=== PATIENT | female | born 1970 | race Caucasian/White ===

== ENCOUNTER 2019-05-16 05:52 | Day surgery (SDC) | payer OTHER ==
[2019-05-05 12:02] VITALS: BMI 36.8
[~2019-05-16 05:52] MED LIST: BUPIVICAINE 0.25%/MORPH PF/KETOROLAC - 51ML DISP.SYRINGE IA ONE; GELATIN, ABSORBABLE 100 EACH SPONGE TP ONE; THROMBIN (BOVINE) 5,000 UNIT VIAL TP ONE
[2019-05-16] MEDS ORDERED: BUPIVACAINE HCL/PF 0.5% (5 MG/ML) 30 ML VIAL IJ ONE (06:43)
[2019-05-16] MEDS ORDERED: MIDAZOLAM HCL 2 MG/2 ML SINGLE DOSE VIAL ONE (06:43)
[2019-05-16] MEDS ORDERED: CEFAZOLIN 2 GM in DEXTROSE 5%-WATER - 50 ML IVPB ONE (06:44)
[2019-05-16] MEDS ORDERED: BUPIVICAINE 0.25%/MORPH PF/KETOROLAC - 51ML DISP.SYRINGE IA ONE ×3 (06:44→09:59)
[2019-05-16] MEDS ORDERED: TRANEXAMIC ACID 1000 MG/10 ML VIAL IVPUSH ONE (06:44)
[2019-05-16] MEDS: CELECOXIB 200 MG CAPSULE PO ONE (07:10)
[2019-05-16] MEDS ORDERED: THROMBIN (RECOMBINANT) 5,000 UNIT VIAL TP ONE (07:15)
[2019-05-16] MEDS ORDERED: ceFAZolin SODIUM 1 GM VIAL ONE ×2 (07:15→08:58)
[2019-05-16] MEDS ORDERED: VANCOMYCIN 1,000 MG VIAL (RESTRICTED TO ID ONLY) ONE (07:16)
[2019-05-16] MEDS ORDERED: ONDANSETRON 4 MG/2 ML VIAL IVPUSH PRN ×2 (08:02→10:44)
[2019-05-16] MEDS ORDERED: MAG HYDROX/AL HYDROX/SIMETH 30 ML UNIT-DOSE CUP PO PRN (08:02)
--- NOTE | 2019-05-16 08:02 | HP ---
[facility] - Chief Complaint Chief Complaint: right knee pain - Past Medical History Allergies/Adverse Reactions: Allergies Allergy/AdvReac Type Severity Reaction Status Date / Time No Known Allergies Allergy Verified 05/16/19 06:52 ...LMP Comment: 02/09/2019 - Current Medications Current Medications: Home Medications Medication Instructions Recorded Ferrous Sulfate [Iron] 325 mg PO DAILY 05/05/19 Gluc Davis/Chondro Davis A/Vit C/Mn 1 each PO DAILY 05/05/19 [Glucosamine-Chondroitin Caps] Satellite Physical Exam - Physical Examination Vital Signs: Vital Signs Period Temp Pulse Resp BP Sys/Jameson Pulse Ox Last 24 Hr 98.5 F 83 18 140/86 97-97 General Appearance: Well Nourished, Well Developed, Alert & Oriented x3 ENT: Clear Lung: Normal air movement Extremities: Other (right knee- + swelling, + ttp medially, decr rom, nvi, xrays show grade 4 medial djd) Neurological: Intact, Alert, Oriented Satellite Impression/Plan - Impression/Plan Impression: right knee medial djd Operative Procedure: right medial cam ukr Date to be Performed: 05/16/19
[2019-05-16] MEDS ORDERED: LACTATED RINGERS SOLUTION 1,000 ML IV SCH (08:15)
[2019-05-16] MEDS ORDERED: BUPIVACAINE HCL/PF 0.5% (5MG/ML) 10 ML VIAL ONE (08:43)
[2019-05-16] MEDS ORDERED: DEXAMETHASONE SOD PHOSPHATE 4 MG/1 ML VIAL ONE (08:58)
[2019-05-16] MEDS ORDERED: ONDANSETRON 4 MG/2 ML VIAL ONE (08:58)
[2019-05-16] MEDS ORDERED: TRANEXAMIC ACID 1000 MG/10 ML VIAL ONE (08:58)
[2019-05-16] MEDS ORDERED: ePHEDrine SULFATE 50 MG/1 ML AMPULE ONE (09:40)
[2019-05-16] MEDS ORDERED: GELATIN, ABSORBABLE 100 EACH SPONGE TP ONE (09:50)
[2019-05-16] MEDS ORDERED: THROMBIN (BOVINE) 5,000 UNIT VIAL TP ONE (09:50)
[2019-05-16] MEDS ORDERED: METOPROLOL TARTRATE 5 MG/5 ML VIAL ONE (10:08)
--- NOTE | 2019-05-16 10:22 | OP ---
Operative Note - Note: Operative Date: 05/16/19 (anand) Pre-Operative Diagnosis: right knee medial djd Operation: right medial cam ukr Post-Operative Diagnosis: Same as Pre-op Surgeon: Fabio Jaimes Cement Gun Operator: Lucas Earl Anesthesiologist/AIRDROP SYSTEMS TECHNICIAN: Fede Cho Anesthesia: Spinal, Local Specimens Removed: bone fragments Estimated Blood Loss (mls): 50
[2019-05-16] MEDS ORDERED: PROMETHAZINE HCL 25 MG/1 ML VIAL IVPUSH PRN (10:44)
[2019-05-16] MEDS ORDERED: oxyCODONE HCL 5 MG TABLET PO PRN ×2 (10:44)
[2019-05-16] MEDS ORDERED: traMADol HCL 50 MG TABLET PO PRN (10:44)
--- NOTE | 2019-05-16 11:06 | SPEC ---
DATE OF OPERATION: 05/16/2019 PREOPERATIVE DIAGNOSIS: Degenerative joint disease, right knee. POSTOPERATIVE DIAGNOSIS: Degenerative joint disease, right knee. PROCEDURE: Right medial unicompartmental knee replacement with robotic-assisted navigation (MAKOplasty) and patelloplasty. SURGICAL ATTENDING: Fabio Jaimes MD ANESTHESIA: Regional and spinal. CLOSURE: Medial unicompartmental URSULA components with a 4 femur, 3 tibia, and an 8 polyethylene; No. 1 Vicryl, fascia; 0 and 2-0, subcutaneous; 3-0 Monocryl subcuticular with skin glue; 4-0 undyed Vicryl for pin sites. ESTIMATED BLOOD LOSS: Negligible. TOURNIQUET TIME: Approximately 24 minutes. COMPLICATIONS: None. CONDITION: To recovery in stable condition. DESCRIPTION OF OPERATIVE PROCEDURE: Patient was taken to the operating room on May 16, 2019. Spinal and regional anesthesia was administered by the anesthesiologist. IV Kefzol and TXA were administered prophylactically prior to the case. A well-padded pneumatic tourniquet was placed on the right proximal thigh. The right lower extremity was prepped and draped in the usual sterile fashion. A 6- to 8-cm longitudinal incision over the medial side of the patella from mid patella to the tibial tubercle was incised and was deepened using Bovie cautery. An arthrotomy was then made just medial to the patellar tendon and the patella. Subperiosteal dissection was done on the anteromedial proximal tibia all the way back to the MCL. Partial fat pad excision was performed, exposing the medial compartment. Checkpoint was malleable at both the femur and the tibia. Using 2 stab incisions in the femur 1 handbreadth above the patella on the femur and 2 stab incisions 1 handbreadth below the tibial tubercle on the tibia, 2 threaded pins were drilled in parallel fashion from anterior to posterior, going through the proximal cortex and engaging the 2nd but not through the 2nd cortex. To these threaded pins were fastened navigation rays, 1 on the femur and 1 on the tibia. The knee was then registered with the navigation device with the center of the rotation of the hip, medial and lateral malleoli, and multiple points both on the femur and on the tibia. Excellent registration of less than 0.5 mm was obtained on both to ensure adequate registration. The navigation device ensured us to "pop the bubbles" both on the femur and the tibia and that was performed and passed registration. The knee was then thoroughly inspected to remove all osteophytes both on the femur and the tibia. Also, osteophytes on the trochlea and on the surface of the patella were removed as well. The knee was then stressed with valgus stress at 0, 30, 60, 90, and 120 degrees of flexion. This propagated a looseness/tightness graft. The virtual positions of the components were then optimized to ensure an excellent graft. The tracking also was optimized by manipulating the virtual position to ensure that the femoral component articulated with the central portion of the tibial component. The robot was then brought into the field and was registered. The robot was used to bur the bone on both the femur and the tibia as to the specifications of the components. The trial components were then applied on both the femur and the tibia with an appropriate polyethylene insert. The knee was taken through a range of motion and found to have full extension, full flexion, with excellent stability. Stressing the graft revealed an excellent looseness/tightness graft with the trial components in place. The trial components were removed. The knee was thoroughly irrigated with a copious amount of antibiotic irrigation. The real components were then cemented in using modern generation cement techniques with antibiotic cement and pressurization. After the cement was hardened, the knee was thoroughly inspected to remove out all excess cement. The real polyethylene insert was then clipped into place. Range of motion and stability were again assessed to be as they were with the trials. At this time, the pins and the checkpoints were removed. The knee was again thoroughly irrigated. The arthrotomy was closed with No. 1 Vicryl, 0 and 2-0 subcutaneous, and 3-0 Monocryl subcuticular with skin glue for the skin, 4-0 undyed Vicryl for the pin sites. Sterile pressure dressing was placed over the knee. Patient awakened from anesthesia and transferred to recovery in stable condition. No complications. Estimated blood loss negligible. X-rays postoperatively revealed excellent position of the components. Deyvi [id number]
[2019-05-16] MEDS: ACETAMINOPHEN 325 MG TABLET (FP) PO SCH ×3 (12:53→23:17)
[2019-05-16] MEDS: MULTIVITAMINS (DAILY MVI) TABLET (FP) PO SCH (12:54)
[2019-05-16] MEDS: FERROUS SO4 325 MG TABLET (FP) PO SCH (12:54)
[2019-05-16] MEDS: PANTOPRAZOLE 40 MG TABLET PO SCH (12:54)
[2019-05-16] MEDS: SENNOSIDES/DOCUSATE COMBO (SENNA PLUS) TABLET (UD) PO SCH ×2 (12:55→21:49)
[2019-05-16] MEDS: CEFAZOLIN 2 GM/D5W 2 GM/50 ML ML IVPB SCH ×2 (15:54→23:18)
[2019-05-17] MEDS: ACETAMINOPHEN 325 MG TABLET (FP) PO SCH (06:04)
[2019-05-17] MEDS: CELECOXIB 200 MG CAPSULE PO ONE (07:03)
[2019-05-17] MEDS ORDERED: ASPIRIN 325 MG TABLET PO SCH (08:00)
[2019-05-17] MEDS: FERROUS SO4 325 MG TABLET (FP) PO SCH (09:21)
[2019-05-17] MEDS: SENNOSIDES/DOCUSATE COMBO (SENNA PLUS) TABLET (UD) PO SCH (09:21)
[2019-05-17] MEDS: MULTIVITAMINS (DAILY MVI) TABLET (FP) PO SCH (09:22)
[2019-05-17] MEDS: PANTOPRAZOLE 40 MG TABLET PO SCH (09:22)
[2019-05-17 09:45] VITALS: BP 113/49; PULSE 76; TEMP 98.5
== END 2019-05-17 10:30 | disposition home health service (06) ==
LOC: FASU 05:52 → FASUSAT 05:52 → FM/S 12:11 → FASUSAT 05-17 10:30
PROVIDERS: ATTEND Orthopaedic Surgery
PROC: 8E0YXBZ Computer Assisted Procedure of Lower Extremity (ICD-10-PCS; 2019-05-16)
PROC: 8E0Y0CZ Robotic Assisted Procedure of Lower Extremity, Open Approach (ICD-10-PCS; 2019-05-16)
PROC: 0SRC0L9 Replacement of Right Knee Joint with Medial Unicondylar Synthetic Substitute, Cemented, Open Approach (ICD-10-PCS; principal; 2019-05-16 09:07)
DX: M17.11 Unilateral primary osteoarthritis, right knee (principal)
CPT/HCPCS: 20985; 27446; C1776; S2900; 73560-TC-RT-FY; 81025; 94760; 97116-GP; 97162-GP